=== PATIENT | female | born 1975 | race Caucasian/White ===

== ENCOUNTER 2019-09-11 07:01 | Outpatient (CLI) | payer OTHER, SELFPAY ==
--- NOTE | 2019-09-11 07:12 | MR_ITS ---
WS: [id number] MRI LEFT KNEE NONCONTRAST TECHNIQUE: Axial PD, coronal PD fat sat, coronal PD, sagittal PD, and sagittal PD fat-sat images obta ined. CLINICAL INFORMATION: CHRONIC PAIN OF BOTH KNEES COMPARISON: None. FINDINGS: Normal anterior cruciate ligament. Normal PCL. Distal quadriceps and patella tendons are intact. Smal l joint effusion. Small amount of prepatellar and infrapatellar soft tissue edema. Normal popliteal f jaqueline. Chronic thinning of the medial and lateral meniscus. No acute appearing meniscal tears. Grade III chondromalacia patella. No significant subchondral edema. Subluxation of the patella in the trachea groove laterally. This may be due to positioning. Recommend correlation for patellar instabi lity. Patellar retinaculum appears intact. No evidence of recent patellar dislocation. Medial and lateral collateral ligaments appear intact. Mild joint space narrowing involving the media l and lateral joint compartments. No significant subchondral edema. MR/MR knee LT wo con* [id number] IMPRESSION: 1. Anterior and posterior cruciate ligaments are intact. 2. No acute appearing meniscal tears. Mild chronic thinning of the medial and lateral meniscus. 3. Small joint effusion with prepatellar and infrapatellar soft tissue edema. 4. Grade III chondromalacia patella with mild lateral subluxation of the hercules la in the trochlear groove likely positional. Retinaculum appear intact. 5. Mild joint space narrowing involving the medial and lateral joint compartme nts. Trace subchondral edema medial tibial plateau.
== END 2019-09-11 07:02 | disposition home or self-care (01) ==
LOC: RADSHAW 07:06
PROVIDERS: PCP Nurse Practitioner Family; Visit Provider Nurse Practitioner Family
DX: M25.561 Pain in right knee (principal); G89.29 Other chronic pain; M25.462 Effusion, left knee; R60.0 Localized edema; S83.012A Lateral subluxation of left patella, initial encounter; X58.XXXA Exposure to other specified factors, initial encounter
CPT/HCPCS: 73721

== ENCOUNTER → 2019-11-08 15:28 | Outpatient (BNVA) | payer OTHER, SELFPAY | PROVIDERS: PCP Nurse Practitioner Family; Visit Provider Internal Medicine Rheumatology | DX: M70.51 Other bursitis of knee, right knee (principal); M70.52 Other bursitis of knee, left knee; Y93.9 Activity, unspecified | CPT/HCPCS: 99203 ==

== ENCOUNTER → 2020-01-01 15:01 | Outpatient (BNVA) | payer OTHER, SELFPAY | PROVIDERS: PCP Nurse Practitioner Family; Visit Provider Internal Medicine Rheumatology | DX: M70.52 Other bursitis of knee, left knee (principal); M70.51 Other bursitis of knee, right knee; Y93.9 Activity, unspecified | CPT/HCPCS: 99212 ==

== ENCOUNTER 2020-01-30 09:09 | Outpatient (CLI) | payer OTHER, SELFPAY ==
--- NOTE | 2020-01-30 09:16 | MM_ITS ---
WS: [id number] Bilateral screening digital mammogram, 01/30/2020 Clinical Data: SCREENING Comparison: 08/17/2018, 03/01/2017, 09/09/2015, 04/30/2009. Findings: The breast parenchymal pattern shows fat replacement. No spiculated masses or clustered calcification s are seen. There are no secondary signs of carcinoma. MM/[place] [id number] Impression: 1. Negative bilateral mammogram unchanged. 2. Recommend annual screening mammograms. BIRADS: 1-Negative FOLLOW UP: 1 Year Follow-up The CAD color checker roving or yarn was used.
== END 2020-01-30 09:10 | disposition home or self-care (01) ==
LOC: RADSHAW 09:12
PROVIDERS: PCP Nurse Practitioner Family; Visit Provider Nurse Practitioner Family
DX: Z12.31 Encounter for screening mammogram for malignant neoplasm of breast (principal)
CPT/HCPCS: 77067

== ENCOUNTER 2020-04-23 22:21 | Emergency (ER) | payer OTHER, SELFPAY ==
[2020-04-23 22:29] VITALS: BP 135/84; PULSE 84; RESP 18; TEMP 36.3; O2SAT 100; BMI 50.8
--- NOTE | 2020-04-23 22:36 | ED_ITS ---
HPI - Back Pain/Injury General: Chief Complaint: Back Pain/Injury Stated Complaint: possible kidney stones Time Seen by Provider: 04/23/20 22:24 History of Present Illness: HPI Narrative: Patient is a 45-year-old female that comes to the ED with right flank pain. Symptoms started a couple hours ago. She describes having sharp 10 out of 10 pain in right flank region. Pain is localized and is on the right thoracic back region. It was a sudden onset of pain. Pain comes and episodes and they occur approximately every 30 seconds to a minute. She took some ibuprofen and tramadol before coming to the ED and states that has not helped. Pain does not get worse with movement and says that she feels like she just can't get comfortable. She denies any fever, chills, nausea, emesis, abdominal pain, UTI symptoms. Denies any acute injury or accident to cause pain and history of kidney stones. Past surgical history of total hysterectomy. Associated symptoms: Deny abdominal pain, chills, dysuria, fatigue, fever(s), hematuria, nausea or vomiting Review of Systems Const: Denies: fever(s), chills or fatigue Eyes: Denies: change in vision or eye discomfort ENMT: Denies: throat pain, odynophagia, nasal discharge or nasal congestion Card: Denies: chest pain, palpitations, edema, swelling of feet/ankles, dyspnea on exertion or orthopnea Resp: Denies: dyspnea, productive cough or non-productive cough GI: Denies: abdominal pain, nausea, vomiting, diarrhea, constipation or hematochezia : Reports: flank pain (Right flank); Denies: dysuria or hematuria Musc: Reports: back pain (Thoracic back right side); Denies: neck pain or extremity swelling Skin/Breast: Denies: rash or new lesions Neuro: Denies: headache(s), numbness in extremities or weakness in extremities [facility] ED PFSH: Medical History Arthralgia of both knees Diabetes Joint pain Pes anserine bursitis Surgical History History of delivery History of hernia repair History of hysterectomy History of microdiscectomy Family History Other CAD (coronary artery disease) Cancer Hyperlipidemia Hypertension Rheumatoid arthritis Denies family history of Diabetes Lupus Chronic kidney disease (CKD) Lung disease Stroke Social History Smoking and tobacco status: never smoked Alcohol intake: never History of recent travel: No Physical Exam Const: COMMON NORMALS: patient oriented x3 and alert GENERAL APPEARANCE: cooperative and comfortable NUTRITIONAL APPEARANCE: obese HENMT: COMMON NORMALS: normocephalic HEAD & SCALP: normocephalic MOUTH: Normal oral and palatal mucosa present THROAT: posterior oropharynx normal and uvula midline Neck/C-Spine: COMMON NORMALS: supple GENERAL: Yes normal visual inspection Resp: COMMON NORMALS: normal respiratory effort, No retractions, No use of accessory muscles and clear to auscultation bilaterally AUSCULTATION: clear to auscultation bilaterally Cardio: COMMON NORMALS: regular rate, regular rhythm, S1 normal heart sound present, S2 normal heart sound present, No gallops present (Cardio), No clicks present (Cardio), No murmurs present (Cardio) and Peripheral pulses 2+ throughout RATE: regular rate RHYTHM: regular rhythm HEART SOUNDS: S1 normal heart sound present and S2 normal heart sound present PERIPHERAL PULSES: Peripheral pulses 2+ throughout GI: COMMON NORMALS: Normal to inspection, nondistended, normoactive bowel sounds present, Soft to palpation, non-tender and no masses INSPECTION: Yes central obesity PALPATION: Yes Soft to palpation : COMMON NORMALS: Yes no CVA tenderness (Patient had no left or right CVA tenderness on exam.) BLADDER/KIDNEY EXAM: Yes no CVA tenderness (Patient had no left or right CVA tenderness on exam.) Back/Pelvis: COMMON NORMALS: no CVA tenderness (Patient had no left or right CVA tenderness on exam.) THORACIC SPINE/UPPER BACK: Yes other soft tissue findings Other thoracic soft tissue findings laterality: right Right other thoracic soft tissue findings details: tenderness (Mild tenderness of soft tissue-possible muscular tenderness.) Extremity: COMMON NORMALS: normal to inspection Neuro: COMMON NORMALS: patient oriented x3 and moves all extremities SENSORIUM/ORIENTATION: Yes alert Skin: GENERAL SKIN EXAM: dry skin Course Vital Signs: Vital signs: Vital Signs Temperature 97.3 F L 04/23/20 22:29 Pulse Rate 88 04/23/20 23:55 Respiratory Rate 18 04/23/20 23:55 Blood Pressure 156/105 04/23/20 23:47 Pulse Oximetry 98 04/23/20 23:55 MDM - Back Pain/Injury MDM Narrative: Medical decision making narrative: Patient is a 45-year-old female comes to the ED with right flank pain. Denies fever, chills, chest pain, shortness of breath or UTI symptoms. Patient appears in no acute distress or pain. Patient has no CVA tenderness upon exam but does have some mild localized soft tissue tenderness in the right thoracic back region. UA was unremarkable and showed no blood or bacteria. CT of the abdomen showed no kidney stones and kidney's were normal. no other acute findings. Patient was given Toradol and Norflex for pain. Patient was diagnosed with musculoskeletal back pain she was discharged home with a prescription of Robaxin. Return to ED precautions given. Follow-up with PCP in 7 to 10 days. Patient understood and agreed with plan. Lab Data: Attestation: I reviewed the patient's lab results. Labs: Lab Results 04/23/20 Range/Units 20:40 Urine Color Yellow (Yellow) Urine Appearance Clear (CLEAR) Urine pH 7 (5-7) Ur Specific Gravit y 1.005 (1.005-1.030) Urine Protein Neg (Negative) Urine Glucose (UA) Norm (Normal) Urine Ketones Negative (Negative) Urine Blood Neg (Negative) Urine Nitrate Negative (Negative) Urine Bilirubin Neg (Negative) Urine Urobilinogen Norm (Negative) mg/dL Ur Leukocyte Kaia ase Negative (Negative) Urine RBC None (0-2) /hpf Urine WBC 0-4 H (0-5) /hpf Ur Squamous Epith Cells Rare (0-5) /hpf Amorphous Sediment Not Reportable Urine Bacteria Trace (NONE) /hpf Imaging Data^: CT Abd/Pel: Attestation: I personally reviewed and interpreted this imaging study as follows: Radiologist's impression: [address] [place] [address] CT Scan Report Signed Patient: Tatum Horan Unit #: [id number] : 1975 Age/Sex: 45 / F ADM Date: 11/05 Loc: ER Room/Bed: Attending Dr: Ordering Provider/Ordering MD: Aj Kemp Date of Service: 04/23/20 Procedure(s): CT kidney stone 79531 Accession Number(s): [id number] Report Number: [id number] PROCEDURE INFORMATION: Exam: CT Abdomen And Pelvis Without Contrast Exam date and time: 04/23/2020 10:55 PM Age: 45 years old Clinical indication: Abdominal pain; Flank; Right; Prior surgery; Surgery type: , hyst, hernia; Additional info: Right flank pain TECHNIQUE: Imaging protocol: Computed tomography of the abdomen and pelvis without contrast. Radiation optimization: All CT scans at this facility use at least one of these dose optimization techniques: automated exposure control; mA and/or kV adjustment per patient size (includes targeted exams where dose is matched to clinical indication); or iterative reconstruction. COMPARISON: CT abdomen w con* [id number] 03/02/2017 9:24 AM RADIATION DOSE METRICS: Total DLP (mGy-cm): 1772.39 FINDINGS: Lungs: The lung bases appear unremarkable. Liver: Decreased hepatic density is noted, consistent with hepatic steatosis. Gallbladder and bile ducts: No calcified gallstones in the gallbladder. No gallbladder wall thickening. No pericholecystic fluid. No biliary dilatation. Pancreas: The pancreas is normal in appearance. No pancreatic duct dilatation. Spleen: The spleen is normal in size and appearance. Adrenal glands: The adrenal glands appear within normal limits. Kidneys and ureters: The kidneys are morphologically normal. No nephrolithiasis. No hydronephrosis. No ureteral calculi. No obstructive uropathy. Stomach and bowel: No acute gastric abnormality demonstrated. The small bowel is unremarkable as demonstrated. No acute abnormality/inflammatory change of the colon. Appendix: The appendix is normal in appearance. No evidence of appendicitis. Intraperitoneal space: No pneumoperitoneum. No significant fluid collection. Vasculature: No abdominal aortic aneurysm. Lymph nodes: Shotty mesenteric lymph nodes. No pathologically enlarged nodes identified. Urinary bladder: The urinary bladder is unremarkable in appearance. Reproductive: The uterus is not visualized, consistent with hysterectomy. Bones/joints: Degenerative spine changes are noted. No fracture or other acute osseous abnormality. Soft tissues: Unremarkable. CT/CT kidney stone [id number] IMPRESSION: 1. The kidneys are morphologically normal. No nephrolithiasis. No hydronephrosis. No ureteral calculi. No obstructive uropathy. 2. Decreased hepatic density is noted, consistent with hepatic steatosis. 3. No acute abnormality demonstrated in the abdomen and pelvis. 4. There is no interval change from the prior examination. Radiation Dose CTDIVOL = (mGy): DLP = 1772.39 (mGy-cm) Dictated By: Thong Loja MD Signed By: Thong Loja MD Signed Date/Time: 04/23/202324 DD/ 22 Discharge Plan Discharge Patient Disposition: Home Clinical Impression: Musculoskeletal back pain Condition: Stable Prescriptions: New methocarbamol 750 mg tablet 750 mg PO Q8H Qty: 15 RF: 0 No Action diclofenac sodium 1 % gel 4 gm TOPICAL QID Qty: 200 RF: 2 metoprolol succinate [Toprol XL] 25 mg tablet extended release 24 hr 25 mg PO DAILY RF: 0 lisinopril 5 mg tablet 5 mg PO DAILY RF: 0 metformin 500 mg tablet 500 mg PO DAILY RF: 0 Januvia 100 mg tablet 100 mg PO DAILY RF: 0 omeprazole 40 mg capsule,delayed release(DR/EC) 40 mg PO DAILY RF: 0 montelukast [Singulair] 10 mg tablet 10 mg PO DAILY RF: 0 eletriptan [Relpax] 20 mg tablet 20 mg PO Q2H PRNRF: 0 albuterol sulfate [Ventolin HFA] 90 mcg/actuation HFA aerosol inhaler 2 puff INHALATION Q6H PRNRF: 0 Discharge Orders: Discharge ED (Routine); Ordered 04/23/20 Ordered By: Aj Kemp Referrals: Alysha Smith FNP [Primary Care Provider] - Discharge Diet: Regular Discharge Activity: Increase activity as tolerated Patient Instructions: Musculoskeletal Pain (ED), Back Pain (ED) Activity Restrictions/Additional Instructions: Follow-up with medical provider as directed in 7 to 10 days for reevaluation. Take medication as prescribed. Methocarbamol is a muscle relaxer and can cause some drowsiness as a side effect so take at night before bed. If you use during the day use with caution. Apply cold pack or heat on back to help with symptoms. Return to the ER or your medical provider if condition worsens. Please read and understand discharge instructions. If any questions, please ask. Coding Level of Care Code ED Audit Spec for Maria Antonia Fwd Exam Comprehensive
[2020-04-23 22:47] LABS: Bilirubin Urine Neg (Negative); Blood Urine Neg (Negative); Glucose Urine UA Norm (Normal); Ketones Urine Negative (Negative); Leukocyte Esterase Urine Negative (Negative); Nitrate Urine Negative (Negative); Protein Urine Neg (Negative); Specific Gravity, Urine 1.005 (1.005-1.030); Urine Appearance Clear (CLEAR); Urine Color Yellow (Yellow); Urobilinogen Urine Norm (Negative); pH Urine 7 (5-7)
[2020-04-23 22:50] LABS: WBC Urine 0-4 /hpf (0-5)
[2020-04-23 22:51] LABS: Add Urine Culture? No; Bacteria Urine TRACE /hpf; Squamous Epithelial Cell Urine RARE /hpf (0-5)
--- NOTE | 2020-04-23 22:53 | CTR_ITS ---
PROCEDURE INFORMATION: Exam: CT Abdomen And Pelvis Without Contrast Exam date and time: 04/23/2020 10:55 PM Age: 45 years old Clinical indication: Abdominal pain; Flank; Right; Prior surgery; Surgery type: , hyst, hernia; Additional info: Right flank pain TECHNIQUE: Imaging protocol: Computed tomography of the abdomen and pelvis without contrast. Radiation optimization: All CT scans at this facility use at least one of these dose optimization techniques: automated exposure control; mA and/or kV adjustment per patient size (includes targeted exams where dose is matched to clinical indication); or iterative reconstruction. COMPARISON: CT abdomen w con* [id number] 03/02/2017 9:24 AM RADIATION DOSE METRICS: Total DLP (mGy-cm): 1772.39 FINDINGS: Lungs: The lung bases appear unremarkable. Liver: Decreased hepatic density is noted, consistent with hepatic steatosis. Gallbladder and bile ducts: No calcified gallstones in the gallbladder. No gallbladder wall thickening. No pericholecystic fluid. No biliary dilatation. Pancreas: The pancreas is normal in appearance. No pancreatic duct dilatation. Spleen: The spleen is normal in size and appearance. Adrenal glands: The adrenal glands appear within normal limits. Kidneys and ureters: The kidneys are morphologically normal. No nephrolithiasis. No hydronephrosis. No ureteral calculi. No obstructive uropathy. Stomach and bowel: No acute gastric abnormality demonstrated. The small bowel is unremarkable as demonstrated. No acute abnormality/inflammatory change of the colon. Appendix: The appendix is normal in appearance. No evidence of appendicitis. Intraperitoneal space: No pneumoperitoneum. No significant fluid collection. Vasculature: No abdominal aortic aneurysm. Lymph nodes: Shotty mesenteric lymph nodes. No pathologically enlarged nodes identified. Urinary bladder: The urinary bladder is unremarkable in appearance. Reproductive: The uterus is not visualized, consistent with hysterectomy. Bones/joints: Degenerative spine changes are noted. No fracture or other acute osseous abnormality. Soft tissues: Unremarkable. CT/CT kidney stone [id number] IMPRESSION: 1. The kidneys are morphologically normal. No nephrolithiasis. No hydronephrosis. No ureteral calculi. No obstructive uropathy. 2. Decreased hepatic density is noted, consistent with hepatic steatosis. 3. No acute abnormality demonstrated in the abdomen and pelvis. 4. There is no interval change from the prior examination. Radiation Dose CTDIVOL = (mGy): DLP = 1772.39 (mGy-cm)
[2020-04-23] MEDS: sodium chloride 0.9% 500 ML 999 ML IV (23:16)
[2020-04-23 23:47] VITALS: BP 156/105; PULSE 78; RESP 18; O2SAT 98
[2020-04-23] MEDS: orphenadrine 30 mg/mL Inj 2 mL 60 MG IVP (23:49)
[2020-04-23] MEDS: ketorolac 30 mg/mL INJ IVP (23:50)
[2020-04-23 23:55] VITALS: PULSE 88; RESP 18; O2SAT 98
== END 2020-04-24 00:03 | disposition home or self-care (01) ==
PROVIDERS: Emergency Provider Physician Assistant; PCP Nurse Practitioner Family
DX: M54.9 Dorsalgia, unspecified (principal); Z79.84 Long term (current) use of oral hypoglycemic drugs; E11.9 Type 2 diabetes mellitus without complications
CPT/HCPCS: 74176; 81001; 96361; 96374; 96375; 99283; J1885; J2360; J7040

== ENCOUNTER 2021-05-15 08:14 | Outpatient (CLI) | payer OTHER, SELFPAY ==
--- NOTE | 2021-05-15 14:25 | MM_ITS ---
WS: [id number] VIEWS: MLO and CC views both breasts. 3D digital tomosynthesis is also included in this exam. Comparison made with prior exam of 01/30/2020. Findings: There was no sign of mass, architectural distortion or suspicious calcification in either breast. Fa tty MM/[place] [id number] Impression: BI-RADS: 2-Benign FOLLOW-UP: 1 Year Follow-up This mammogram was also analyzed by the Computer Aided Detection System R2 Imag e Entry Table Operator.
== END 2021-05-15 08:15 | disposition home or self-care (01) ==
LOC: RADSHAW 08:16
PROVIDERS: PCP Nurse Practitioner Family; Visit Provider Obstetrics & Gynecology
DX: Z12.31 Encounter for screening mammogram for malignant neoplasm of breast (principal)
CPT/HCPCS: 77063; 77067

== ENCOUNTER 2022-05-21 13:00 | Outpatient (CLI) | payer OTHER, SELFPAY ==
--- NOTE | 2022-05-21 13:15 | MM_ITS ---
WS: [id number] BILATERAL 3D TOMOSYNTHESIS DIGITAL SCREENING MAMMOGRAPHY WITH CAD CLINICAL INFORMATION: SCREENING HISTORY: Screening mammogram. No current complaints. COMPARISON: 2021 TECHNIQUE: Bilateral CC and MLO views. FINDINGS: Scattered fibroglandular densities bilaterally. No suspicious focal mass, asymmetry, calcifications, or architectural distortion. No evidence of malignancy. MM/[place] [id number] IMPRESSION: BI-RADS: 1-Negative FOLLOW UP: 1 Year Follow-up Recommend return to annual screening mammography.
== END 2022-05-21 13:01 | disposition home or self-care (01) ==
LOC: RAD 13:06
PROVIDERS: PCP Nurse Practitioner Family; Visit Provider Obstetrics & Gynecology
DX: Z12.31 Encounter for screening mammogram for malignant neoplasm of breast (principal)
CPT/HCPCS: 77063; 77067

== ENCOUNTER 2023-06-25 07:14 | Outpatient (CLI) | payer OTHER, SELFPAY ==
--- NOTE | 2023-06-25 07:20 | MM_ITS ---
WS: [id number] BILATERAL SCREENING DIGITAL TOMOSYNTHESIS MAMMOGRAM WITH CAD HISTORY: SCREENING COMPARISON: 05/21/2022, 05/15/2021 and 01/30/2020 Bilateral CC and MLO views with tomosynthesis and synthetic mammography submitted. Computer aided det ection analyzed. Breast composition: The breasts are almost entirely fatty. No suspicious masses, microcalcifications or architectural distortion. MM/[place] [id number] IMPRESSION: BI-RADS: 2-Benign FOLLOW UP: 1 Year Follow-up
== END 2023-06-25 07:15 | disposition home or self-care (01) ==
LOC: RAD 07:14
PROVIDERS: PCP Nurse Practitioner Family; Visit Provider Nurse Practitioner Family
DX: Z12.31 Encounter for screening mammogram for malignant neoplasm of breast (principal)
CPT/HCPCS: 77063; 77067

== ENCOUNTER 2024-07-14 09:22 | Outpatient (CLI) | payer OTHER, SELFPAY ==
--- NOTE | 2024-07-14 09:27 | MM_ITS ---
WS: [id number] BILATERAL 3D TOMOSYNTHESIS DIGITAL SCREENING MAMMOGRAM WITH CAD CLINICAL INFORMATION: SCREENING HISTORY: Screening mammogram. No current complaints. COMPARISON: 2023 TECHNIQUE: Bilateral CC and MLO views. FINDINGS: Fatty-replaced breasts bilaterally. No suspicious focal mass, asymmetry, calcifications, or architectural distortion. No evidence of malignancy. MM/MM scr BI tomosynthesis [id number] IMPRESSION: DENSITY: The breasts are almost entirely fatty. BI-RADS: 1 - Negative. FOLLOW UP: 1 Year Follow-up Recommend return to annual screening mammography.
== END 2024-07-14 09:23 | disposition home or self-care (01) ==
PROVIDERS: PCP Nurse Practitioner Family; Visit Provider Nurse Practitioner Family
DX: Z12.31 Encounter for screening mammogram for malignant neoplasm of breast (principal); R92.313 Mammographic fatty tissue density, bilateral breasts
CPT/HCPCS: 77063; 77067